=== PATIENT | male | born 1975 | race Caucasian/White ===

== ENCOUNTER 2017-12-09 20:49 | Emergency (ER) | payer MEDICAID ==
[~2017-12-09] VITALS: Ht 175.3 cm; Wt 71.0 kg
[~2017-12-09 20:49] MED LIST: CEPH500C5 PO
[2017-12-09] MEDS ORDERED: cephalexin 500mg capsule PO ONE (21:15)
[2017-12-09] MEDS ORDERED: CEPH500C5 PO (21:23)
[2017-12-09] MEDS ORDERED: TRIA15CR61 TOP (21:23)
[2017-12-09 21:43] VITALS: BP 140/87
== END 2017-12-09 21:45 | disposition home or self-care (01) ==
LOC: ER 20:50
DX: L03.115 Cellulitis of right lower limb (principal); L23.7 Allergic contact dermatitis due to plants, except food; Z88.8 Allergy status to other drugs, medicaments and biological substances
CPT/HCPCS: 99283

== ENCOUNTER 2017-12-27 20:00 | Emergency (ER) | payer MEDICAID ==
[~2017-12-27] VITALS: Ht 175.3 cm; Wt 75.0 kg
[~2017-12-27 20:00] MED LIST changes: +TRIA15CR61 TOP
[2017-12-27 21:45] VITALS: BP 153/74
== END 2017-12-27 21:47 | disposition home or self-care (01) ==
LOC: ER 20:01
DX: M79.672 Pain in left foot (principal); M79.671 Pain in right foot
CPT/HCPCS: 99281

== ENCOUNTER 2021-05-27 04:12 | Emergency (ER) | payer MEDICAID ==
[~2021-05-27] VITALS: Ht 175.3 cm; Wt 77.3 kg
[2021-05-27 04:19] VITALS: BP 124/93
[2021-05-27] MEDS ORDERED: HYDROcodone/acetaminophen 10/325mg tab PO STA (04:24)
--- NOTE | 2021-05-27 04:32 | NUR ---
to xray via [facility]
[2021-05-27] MEDS ORDERED: sulfamethoxazole/trimethoprim DS (800/160mg) tablet PO ONE (06:30)
[2021-05-27] MEDS ORDERED: SULF1TAB49 PO (06:31)
== END 2021-05-27 06:49 | disposition home or self-care (01) ==
LOC: ER 04:13
DX: L02.416 Cutaneous abscess of left lower limb (principal); L03.116 Cellulitis of left lower limb; F17.200 Nicotine dependence, unspecified, uncomplicated; Z72.89 Other problems related to lifestyle; Z98.890 Other specified postprocedural states; Z79.2 Long term (current) use of antibiotics
CPT/HCPCS: 73590; 99283

== ENCOUNTER 2021-07-10 18:01 | Emergency (ER) | payer MEDICAID | END 2021-07-10 19:24 | disposition left against medical advice (07) | LOC: ER 18:01 | DX: K08.89 Other specified disorders of teeth and supporting structures (principal); Z53.21 Procedure and treatment not carried out due to patient leaving prior to being seen by health care provider ==

== ENCOUNTER 2022-04-29 22:07 | Emergency (ER) | payer MEDICAID ==
[~2022-04-29] VITALS: Ht 177.8 cm; Wt 78.2 kg
[2022-04-29 22:17] VITALS: BP 130/86
== END 2022-04-29 23:09 | disposition left against medical advice (07) ==
LOC: ER 22:08
DX: S01.01XA Laceration without foreign body of scalp, initial encounter (principal); Z53.21 Procedure and treatment not carried out due to patient leaving prior to being seen by health care provider; W22.8XXA Striking against or struck by other objects, initial encounter; Y93.89 Activity, other specified; Y92.89 Other specified places as the place of occurrence of the external cause; Y99.8 Other external cause status